=== PATIENT | female | born 1995 | race Caucasian/White ===

== ENCOUNTER 2021-07-03 10:04 | Emergency (ER) | payer OTHER, MEDICAID ==
[~2021-07-03] VITALS: Ht 170.2 cm; Wt 99.8 kg
[2021-07-03] MEDS ORDERED: LEXAPRO 10 MG T10 M2 PO (10:09)
[2021-07-03] MEDS ORDERED: LUNESTA3 MG PO (10:09)
[2021-07-03 11:49] LABS: ABSOLUTE EOSINOPHILS 0.2 thou/uL (0.0-0.7); ABSOLUTE LYMPHOCYTES 1.4 thou/uL (0.8-5.3); ABSOLUTE MONOCYTES 0.5 thou/uL (0.0-1.2); ABSOLUTE NEUTROPHILS 6.7 thou/uL (1.6-8.1); BASOPHILS 0.4 %; EOSINOPHILS 1.8 %; HEMATOCRIT 43.8 % (37.0-47.0); HEMOGLOBIN 14.3 gm/dL (12.0-15.0); LYMPHOCYTES 15.6 %; MCH 28.5 pg (26.0-34.0); MCHC 32.6 g/dL (28.0-37.0); MCV 87.4 fL (80.0-100.0); MONOCYTES 6.1 %; MPV 8.2 fl. (7.2-11.1); NUCLEATED RBCS 0 /100WBC; PLATELET COUNT* 231 thou/uL (150-400); POLYS 76.1 %; RBC 5.01 mil/uL (4.20-5.00); RDW-CV 14.2 % (10.5-14.5); WBC 8.8 thou/uL (4.0-11.0)
[2021-07-03 12:05] LABS: CALCIUM 8.6 mg/dL (8.5-10.1); CREATININE 0.9 mg/dL (0.6-1.3); POTASSIUM 4.3 mmol/L (3.5-5.1)
[2021-07-03 12:09] LABS: ALBUMIN 3.9 g/dL (3.4-5.0); TOTAL BILIRUBIN 0.6 mg/dL (<0.1-1.0); TOTAL PROTEIN 7.1 g/dL (6.4-8.2)
[2021-07-03 13:12] LABS: URINE BILIRUBIN NEGATIVE (Negative); URINE BLOOD NEGATIVE (Negative); URINE CLARITY CLEAR; URINE COLOR YELLOW; URINE GLUCOSE-RANDOM NEGATIVE (Negative); URINE KETONES NEGATIVE (Negative); URINE LEUKOCYTES-REFLEX NEGATIVE (Negative); URINE NITRITE-REFLEX NEGATIVE (Negative); URINE PROTEIN NEGATIVE (Negative); URINE SPECIFIC GRAVITY <= 1.005 (1.005-1.030); URINE UROBILINOGEN 0.2 E.U./dl (0.2-1.0)
[2021-07-03] MEDS ORDERED: IBUPROFEN 800800 M1 PO (13:24)
[2021-07-03] MEDS ORDERED: DICYCLOMINE HCL20 MG PO (13:24)
[2021-07-03 14:06] VITALS: BP 116/82
--- NOTE | 2021-07-04 11:22 | EKG ---
[place] [address] ELECTROCARDIOGRAM REPORT Name: SCAR BUSTILLO Room: [facility]#: [id number] Admission: 07/03/21 Attend Phys: Discharge: 07/03/21 Date of : [birth year] Date of Service: 07/03/21 1301 Report #: [id number] THIS REPORT FOR: //name// [facility] ED Test Date: 2021-07-03 Test Time: 13:01:38 Pat Name: SCAR BUSTILLO Department: Room: Gender: Hide Salter: : 1995 Requested By: Wendy Ames Order Number: [id number] MD: Ryan Gold Measurements Intervals [place] Rate: 63 P: 27 OR: 148 QRS: 12 QRSD: 83 T: 5 QT: 390 QTc: 400 Interpretive Statements Sinus rhythm No previous ECG available for comparison Electronically Signed On 07-04-2021 11:22:43 CDT by Ryan Gold [email or web address] <ELECTRONICALLY SIGNED> By: Ryan Gold MD, [facility] 07/04/21 1122 1301 1301 Ryan Gold MD, FACC /EPI
--- NOTE | 2021-07-05 10:03 | EKG ---
[place] [address] ELECTROCARDIOGRAM REPORT Name: SCAR BUSTILLO Room: [facility]#: [id number] Admission: 07/03/21 Attend Phys: Discharge: 07/03/21 Date of : [birth year] Date of Service: 07/03/21 1301 Report #: [id number] THIS REPORT FOR: //name// [facility] ED Test Date: 2021-07-03 Test Time: 13:01:38 Pat Name: SCAR BUSTILLO Department: Room: Gender: Senior Clinical Data Manager: : 1995 Requested By: Wendy Ames Order Number: [id number] Gisel MD: Ryan Gold Measurements Intervals [place] Rate: 63 P: 27 MS: 148 QRS: 12 QRSD: 83 T: 5 QT: 390 QTc: 400 Interpretive Statements Sinus rhythm No previous ECG available for comparison Electronically Signed On 07-05-2021 10:03:06 CDT by Ryan Gold [email or web address] <ELECTRONICALLY SIGNED> By: Ryan Gold MD, [facility] 07/05/21 1003 1301 1301 Ryan Gold MD, FACC /EPI
== END 2021-07-03 14:08 | disposition home or self-care (01) ==
LOC: M.ERS 10:04
PROVIDERS: Nurse Practitioner Family
DX: N93.9 Abnormal uterine and vaginal bleeding, unspecified (principal); R11.2 Nausea with vomiting, unspecified; R55 Syncope and collapse; Z98.890 Other specified postprocedural states